=== PATIENT | female | born 1940 | race Caucasian/White ===

== ENCOUNTER 2019-11-25 10:43 | Outpatient (RCR) | payer MEDICARE | END 2019-12-24 | disposition home or self-care (01) | LOC: WCC 10:43 | DX: L02.31 Cutaneous abscess of buttock (principal); E08.622 Diabetes mellitus due to underlying condition with other skin ulcer; L97.919 Non-pressure chronic ulcer of unspecified part of right lower leg with unspecified severity; R60.0 Localized edema; I10 Essential (primary) hypertension; Z85.3 Personal history of malignant neoplasm of breast; M19.90 Unspecified osteoarthritis, unspecified site; Z90.11 Acquired absence of right breast and nipple; E78.5 Hyperlipidemia, unspecified; E11.40 Type 2 diabetes mellitus with diabetic neuropathy, unspecified; Z88.0 Allergy status to penicillin; Z88.2 Allergy status to sulfonamides | CPT/HCPCS: 10060; 11043; 87070; 87181; 87205; G0463 ==